=== PATIENT | female | born 1965 | race Hispanic/Latino ===

== ENCOUNTER 2022-09-24 | Emergency (ER) | payer OTHER ==
[~2022-09-24] VITALS: Ht 160 cm; Wt 112.9 kg
[2022-09-24 00:39] LABS: BASOPHILS % (AUTO) 0.2 % (0.0-5.0); LYMPHOCYTES % (AUTO) 29.6 % (21.0-51.0); MEAN CORPUSCULAR HEMOGLOBIN 28.6 pg (27.0-33.0); MEAN CORPUSCULAR HGB CONC 33.5 g/dL (32.0-36.0); MEAN CORPUSCULAR VOLUME 85.5 fL (79-99); MONOCYTES % (AUTO) 4.7 % (3.0-13.0); NEUTROPHILS % (AUTO) 62.2 % (40.0-77.0); PLATELET COUNT (AUTO) 205 K/uL (130-400); RED BLOOD CELL COUNT(AUTO) 4.33 MIL/uL (4.00-5.50); RED CELL DISTRIBUTION WIDTH 12.4 % (11.0-15.5); WHITE BLOOD COUNT (AUTO) 9.1 K/uL (4.8-10.8)
[2022-09-24 00:45] LABS: CREATININE 0.9 mg/dL (0.5-1.5); POTASSIUM 3.2 mmol/L (3.5-5.1)
[2022-09-24 00:49] LABS: ALBUMIN 3.4 g/dL (3.5-5.0); TOTAL PROTEIN, SERUM 7.1 g/dL (6.0-8.3)
[2022-09-24] MEDS ORDERED: ONDANSETRON 4MG INJ IVP ONE (01:00)
[2022-09-24] MEDS ORDERED: MORPHINE 2 MG SYG IVP ONE (01:00)
[2022-09-24 04:47] VITALS: BP 105/57
[2022-09-24 05:13] LABS: APPEARANCE,URINE CLOUDY (CLEAR); BILIRUBIN,URINE NEGATIVE (NEGATIVE); COLOR,URINE YELLOW (YELLOW); GLUCOSE, URINE (UA) NEGATIVE (NEGATIVE); KETONES,URINE NEGATIVE (NEGATIVE); LEUKOCYTE ESTERASE ,URINE 500 Leu/uL (NEGATIVE); NITRATE,URINE NEGATIVE (NEGATIVE); OCCULT BLOOD,URINE NEGATIVE (NEGATIVE); PROTEIN,URINE 20 mg/dL (NEGATIVE)
[2022-09-24 05:16] LABS: BACTERIA,URINE RARE /HPF (None Seen); MUCUS,URINE MANY LPF (None Seen); SQUAMOUS EPITHELIAL CELL,UR MANY /HPF (0-2)
[2022-09-24] MEDS ORDERED: IBUP-1493 PO (05:17)
[2022-09-24] MEDS ORDERED: CEFU500T67 PO (05:17)
[2022-09-24] MEDS ORDERED: ONDA-104 PO (05:17)
== END 2022-09-24 05:22 | disposition home or self-care (01) ==
LOC: EDH
DX: N39.0 Urinary tract infection, site not specified (principal); R10.11 Right upper quadrant pain; Z90.49 Acquired absence of other specified parts of digestive tract
CPT/HCPCS: 99285; 96374; 76705; 96375; 80053; 83690; 85025; 87088; 81001; 36415; J2270; J2405

== ENCOUNTER 2022-11-07 05:37 | Emergency (ER) | payer OTHER ==
[~2022-11-07] VITALS: Ht 162.6 cm; Wt 108.0 kg
[~2022-11-07 05:37] MED LIST: CEFU500T67 PO; IBUP-1493 PO; ONDA-104 PO
[2022-11-07] MEDS ORDERED: ONDANSETRON 4MG INJ ONE (05:54)
[2022-11-07] MEDS ORDERED: PANTOPRAZOLE 40 MG/VIAL IVP ONE (06:00)
[2022-11-07] MEDS ORDERED: ONDANSETRON 4MG INJ IVP ONE ×2 (06:00→06:30)
[2022-11-07 06:03] LABS: BASOPHILS % (AUTO) 0.4 % (0.0-5.0); EOSINOPHILS % (AUTO) 1.9 % (0.0-8.0); HEMATOCRIT 40.9 % (36-48); MEAN CORPUSCULAR HEMOGLOBIN 28.9 pg (27.0-33.0); MEAN CORPUSCULAR HGB CONC 32.5 g/dL (32.0-36.0); MEAN CORPUSCULAR VOLUME 88.7 fL (79-99); MONOCYTES % (AUTO) 2.6 % (3.0-13.0); NEUTROPHILS % (AUTO) 69.6 % (40.0-77.0); PLATELET COUNT (AUTO) 242 K/uL (130-400); RED BLOOD CELL COUNT(AUTO) 4.61 MIL/uL (4.00-5.50); RED CELL DISTRIBUTION WIDTH 12.6 % (11.0-15.5); WHITE BLOOD COUNT (AUTO) 8.4 K/uL (4.8-10.8)
[2022-11-07] MEDS ORDERED: MAG/ALUM/SIMETH 30 ML UDCUP ONE (06:28)
[2022-11-07] MEDS ORDERED: LIDOCAINE HCL 2% VISCOUS 15 ML UDCUP ONE (06:28)
[2022-11-07] MEDS ORDERED: MAG/ALUM/SIMETH 30 ML UDCUP PO ONE (06:30)
[2022-11-07] MEDS ORDERED: LIDOCAINE HCL 2% VISCOUS 15 ML UDCUP PO ONE (06:30)
[2022-11-07 06:50] LABS: ALBUMIN 3.4 g/dL (3.5-5.0); CREATININE 0.9 mg/dL (0.5-1.5); POTASSIUM 3.6 mmol/L (3.5-5.1); TOTAL PROTEIN, SERUM 7.2 g/dL (6.0-8.3)
[2022-11-07 08:11] LABS: APPEARANCE,URINE CLEAR (CLEAR); BILIRUBIN,URINE NEGATIVE (NEGATIVE); COLOR,URINE YELLOW (YELLOW); GLUCOSE, URINE (UA) NEGATIVE (NEGATIVE); KETONES,URINE NEGATIVE (NEGATIVE); LEUKOCYTE ESTERASE ,URINE 25 Leu/uL (NEGATIVE); NITRATE,URINE NEGATIVE (NEGATIVE); OCCULT BLOOD,URINE NEGATIVE (NEGATIVE); PH,URINE 6.5 (5.0-8.0); PROTEIN,URINE 20 mg/dL (NEGATIVE); UROBILINOGEN,URINE 6 mg/dL (0.2-1.0)
[2022-11-07 08:47] LABS: BACTERIA,URINE Rare /HPF (None Seen); CALCIUM OXALATE CRYSTALS,UR Few /LPF (None Seen); MUCUS,URINE Rare LPF (None Seen); RBC,URINE 0-1 /HPF (0-1); SQUAMOUS EPITHELIAL CELL,UR Rare /HPF (0-2); WBC,URINE 0-1 /HPF (0-1)
[2022-11-07 09:54] VITALS: BP 103/75
[2022-11-07] MEDS ORDERED: PANT40TA PO (10:26)
[2022-11-07] MEDS ORDERED: METO-296 PO (10:33)
== END 2022-11-07 10:33 | disposition home or self-care (01) ==
LOC: EDH 05:37
DX: R10.13 Epigastric pain (principal); R11.2 Nausea with vomiting, unspecified; Z79.899 Other long term (current) drug therapy
CPT/HCPCS: 99285; 74176; 96374; 96375; 82150; 84484; 80053; 83690; 85025; 81001; 36415; 93005 ×2; J2405 ×2; C9113

== ENCOUNTER 2022-12-29 22:31 | Emergency (ER) | payer OTHER ==
[~2022-12-29] VITALS: Ht 165.1 cm; Wt 83.9 kg
[~2022-12-29 22:31] MED LIST changes: +METO-296 PO; +PANT40TA PO
[2022-12-29 22:33] VITALS: BP 110/56; PULSE 64; RESP 20
== END 2022-12-29 22:55 | disposition left against medical advice (07) ==
LOC: EDH 22:31
DX: R10.13 Epigastric pain (principal); Z53.21 Procedure and treatment not carried out due to patient leaving prior to being seen by health care provider
CPT/HCPCS: 99281